=== PATIENT | female | born 1980 | race Asian ===

== ENCOUNTER 2017-05-15 09:24 | Outpatient (CLI) | payer MEDICAID ==
[2016-02-09 13:57] VITALS: BMI 26.8
[~2017-05-15 09:24] MED LIST: IBUPROFEN600 MG PO; PERCOCET 5-3251 TAB PO; PRENATAL COMPLE1 TAB PO
== END 2017-05-15 13:56 ==
LOC: D.MAMMO 09:24
DX: N63 Unspecified lump in breast (principal)

== ENCOUNTER 2020-07-31 05:25 | Day surgery (SDC) | payer MEDICAID ==
[2020-07-29 09:45] LABS: BASOPHILS 0.3 % (0-2); HEMATOCRIT 39.8 % (36.0-48.0); HEMOGLOBIN 13.1 g/dL (12-16); IMMATURE GRANULOCYTES 0.3 % (0-5); LYMPHOCYTES 20.6 % (15-50); MCH 29.2 pg (26.0-34.0); MCHC 32.9 g/dL (31.0-37.0); MCV 88.6 fL (80.0-100.0); MEAN PLATELET VOLUME 9.9 fL (7.4-10.4); MONOCYTES 5.9 % (2-11); NEUTROPHILS 70.9 % (40-80); PLATELET COUNT 220 10x3/uL (130-400); RBC 4.49 10x6/uL (4.00-5.40); RDW 12.6 % (11.5-14.5); WBC 7.4 10x3/uL (4.8-10.8)
[~2020-07-31] VITALS: Ht 157.5 cm; Wt 59.9 kg
[~2020-07-31 05:25] MED LIST changes: +CBD OIL SL; +MULTI-DAY VITAM1 TAB PO
[2020-07-31 06:53] VITALS: BP 104/60; Ht 157.5 cm; Wt 59.9 kg
[2020-07-31 07:11] LABS: HCG URINE NEGATIVE (NEGATIVE)
--- NOTE | 2020-07-31 11:34 | NUR ---
DC INSTRUCTION GIVEN TO PT. STATES UNDERSTANDING. PT STATES HER [employer]ENDER WIND UP HELPER WILL BE ABLE TO PICK HER UP AT ABOUT 1230. WILL CONTINUE TO MONITOR.
--- NOTE | 2020-07-31 12:03 | NUR ---
DC'D IV CATH FULLY INTACT. PT VOIDED. PT FEELS STABLE ENOUGH TO GO HOME. SHE HAS MET DC REQUIREMENTS. PT CONTACTED SHOE TREER TO PICK HER UP. WILL DC SHORTLY
--- NOTE | 2020-07-31 12:26 | NUR ---
PT LEFT UNIT VIA WC AT 1226
--- NOTE | 2020-08-04 06:51 | OP ---
PATIENT NAME: VALERIANO MOON MEDICAL RECORD: [id number] :84 [facility] AD[facility]ION DATE: SURGEON: AMEE IVORY MD DATE OF OPERATION: 07/31/2020 PREOPERATIVE DIAGNOSIS: Multiparity, the patient desires permanent sterility. POSTOPERATIVE DIAGNOSIS: Multiparity, the patient desires permanent sterility. PROCEDURE: Laparoscopic tubal ligation via bipolar cautery. SURGEON: Amee Ivory MD ANESTHESIA: General endotracheal. INTRAVENOUS FLUIDS: Per anesthesia record. ESTIMATED BLOOD LOSS: Minimal. SPECIMENS: None. FINDINGS: Grossly normal-appearing uterus, fallopian tubes and ovaries. COMPLICATIONS: None apparent. PROCEDURE IN DETAIL: The patient was taken to operating room where general anesthesia was achieved without difficulty. The patient was then prepped and draped in the normal sterile fashion in the dorsal lithotomy position in the [facility]. The bladder was drained of approximately 100 cc of clear yellow urine and sponge stick was placed into the bladder for uterine elevation. Following prep and drape, a 5-mm incision was made infraumbilically and a 5-mm bladeless trocar was used to enter the intraperitoneal space under direct visualization of the laparoscope. The introducer was removed and intraperitoneal placement was confirmed with the scope. The patient was insufflated and opening pressure was found to be less than 3 mmHg. A second 5-mm scope was then placed in the midline approximately 4 cm above the pubic symphysis, by making a 5-mm skin incision and the 5-mm bladeless trocar was used to enter the intraperitoneal space under direct visualization of the laparoscope. The fallopian tubes were identified and cauterized approximately 5-6 cm in the mid portion until complete desiccation of the tissue was noted. Of note, on the right tube, it appears that a possible previous distal salpingectomy had been performed or the fimbriated end was fused to the ovary. In either event, the most proximal portion of the fallopian tube was cauterized. Good hemostasis was noted from both surgical sites even under decreased intra-abdominal insufflation pressure. The scope was then removed and the patient was fully desufflated. The trocars were removed and the skin was repaired with 3-0 Vicryl in an interrupted fashion. Sponge stick was removed from the vagina. The patient tolerated procedure well, transferred to postanesthesia recovery stable without incident. TRANSINT:[id number] Voice Confirmation ID: [id number] DOCUMENT ID: [id number] OPERATIVE REPORT [id number] VALERIANO MOON MICHAEL W MD at 0651 CC: [id number] DICTATION DATE: 08/03/20 1519 MAINTENANCE HELPER: 08/04/20 0131 [facility] 07/31/20 [place] [id number]
== END 2020-07-31 12:26 | disposition home or self-care (01) ==
LOC: D.OPS 05:25 → D.PAN 07:30 → D.OPS 07:40
PROVIDERS: ATTEND Obstetrics & Gynecology
DX: Z30.2 Encounter for sterilization (principal); Z64.1 Problems related to multiparity